=== PATIENT | male | born 1995 | race Hispanic/Latino ===

== ENCOUNTER 2018-02-04 17:11 | Emergency (ER) | payer MEDICAID ==
[2018-02-04 17:12] VITALS: BMI 27.3
--- NOTE | 2018-02-04 17:23 | ED PDOC ---
Arrival/HPI - General Chief Complaint: Abdominal Pain Time Seen by Provider: 02/04/18 17:22 Historian: Patient - History of Present Illness Narrative History of Present Illness (Text): 02/04/18 17:23 22 y/o male, no significant pmh, nkda, c/o RLQ pain started today. Pt. stated that he has RLQ pain started acutely this morning, non-radiating, associated with walking, stated that he was exercising yesterday but with no fall or trauma , no numbness or tingling, no urinary symptoms, no fever or chills, no flank pain, no other medical or psychological complaints. Past Medical History - Provider Review Nursing Documentation Reviewed: Yes - Past History Past History: No Previous - Infectious Disease Hx of Infectious Diseases: None - Tetanus Immunization Tetanus Immunization: Up to Date - Past Medical History Past Medical History: No Previous - Psychiatric Hx Depression: No Hx Emotional Abuse: No Hx Physical Abuse: No Hx Substance Use: No - Past Surgical History Past Surgical History: No Previous - Anesthesia Hx Anesthesia: No - Suicidal Assessment Feels Threatened In Home Enviroment: No Family/Social History - Physician Review Nursing Documentation Reviewed: Yes Family/Social History: Unknown Family HX Smoking Status: Unknown If Ever Smoked Hx Alcohol Use: No Hx Substance Use: No Hx Substance Use Treatment: No Allergies/Home Meds Allergies/Adverse Reactions: Allergies seasonal Allergy (Uncoded 02/04/18 17:20) CONGESTION Home Medications: Home Meds Medication Instructions Recorded Confirmed No Known Home Med [No Known Home 07/24/13 02/04/18 Med] Review of Systems - Review of Systems Constitutional: absent: Fatigue, Fevers Eyes: absent: Vision Changes ENT: absent: Hearing Changes Respiratory: absent: SOB, Cough Cardiovascular: absent: Chest Pain Gastrointestinal: Abdominal Pain. absent: Diarrhea, Nausea, Vomiting Skin: absent: Rash, Pruritis Neurological: absent: Headache, Dizziness Psychiatric: absent: Anxiety, Depression, Suicidal Ideation Physical Exam Vital Signs Reviewed: Yes Vital Signs Temp Pulse Resp BP Pulse Ox 02/04/18 18:35 98.3 F 88 18 136/83 98 02/04/18 17:16 98.3 F 88 18 136/83 98 Temperature: Afebrile Blood Pressure: Normal Pulse: Regular Respiratory Rate: Normal Appearance: Positive for: Well-Appearing, Non-Toxic, Comfortable Pain Distress: Moderate Mental Status: Positive for: Alert and Oriented X 3 - Systems Exam Head: Present: Atraumatic, Normocephalic Pupils: Present: PERRL Extroacular Muscles: Present: EOMI Conjunctiva: Present: Normal Mouth: Present: Moist Mucous Membranes Neck: Present: Normal Range of Motion Respiratory/Chest: Present: Clear to Auscultation, Good Air Exchange. No: Respiratory Distress, Accessory Muscle Use Cardiovascular: Present: Regular Rate and Rhythm, Normal S1, S2. No: Murmurs Abdomen: Present: Tenderness (+ttp on the RLQ region, no cva tenderness). No: Distention, Peritoneal Signs, Rebound, Guarding Back: Present: Normal Inspection. No: CVA Tenderness, Midline Tenderness Upper Extremity: Present: Normal Inspection. No: Cyanosis, Edema Lower Extremity: Present: Normal Inspection. No: Edema Neurological: Present: GCS=15, CN II-XII Intact, Speech Normal, Motor Func Grossly Intact, Gait Normal, Memory Normal Skin: Present: Warm, Dry, Normal Color. No: Rashes Psychiatric: Present: Alert, Oriented x 3, Normal Insight, Normal Concentration Medical Decision Making ED Course and Treatment: 02/04/18 17:33 Differential: Appencitis vs. Constipation vs. Muscular strain -Labs/ua -CT abdomen and pelvis -IVF/pepcid/zofran -Observe and reassess 02/04/18 18:15 -Pt. refused labs and CT scans, risks and benefits explained but the patient still refused, spent 15 minutes on the bed side to explained the risks and benefits, still design to sign out against medical advice, witnessed by wheelabrator operatorAMADA Can which both explained the risks and benefits. AMA AMA ER The patient refuses to stay in the Emergency Room (ER) to continue the care and wishes to leave the emergency department against my medical advice. Patient was told that staying in the ER is necessary and a full explanation of the reasons why was given, and understood by the patient with alert and oriented x4. The risk of leaving were explained in laymans term and including but not limited to appendicitis, colitis, bowel perforation, peritonitis, sepsis, organ(s) failures , pain, worsening of condition, permanent disability and from an undiagnosed or untreated condition. The patient accepts these risks, and is in my judgment is competent and capable of understanding the clinical situation and explanation of the risk of leaving. The patient is able to verbally repeated me back the above explained risks and benefits back to me, and verbally expressed understanding. Patient was given the opportunity to ask questions and change mind. The patient was instructed regarding the best care for the present symptoms, and to follow up as soon as possible with the primary care doctor including specialist or return to the emergency department at any time for continuing care. -You sign out against medical advice as we request and advised your to stay in the ER for blood work and Ct abdomen/pelvis to r/o appendicitis, take tylenol for pain as needed. Please follow up with your own pmd/GI/General surgeon immediately, return to the ER any time if you wishes to continue the medical care. - Medication Orders Current Medication Orders: Discontinued Medications Famotidine (Pepcid) 20 mg IVP STAT STA Stop: 02/04/18 17:31 Sodium Chloride (Sodium Chloride 0.9%) 1,000 mls @ 999 mls/hr IV .Q1H1M STA Stop: 02/04/18 18:30 Ondansetron HCl (Zofran Inj) 4 mg IVP STAT STA Stop: 02/04/18 17:31 - PA / PAINT DIPPER / Resident Statement / has reviewed & agrees with the documentation as recorded. Disposition/Present on Arrival - Present on Arrival Any Indicators Present on Arrival: No History of DVT/PE: No History of Uncontrolled Diabetes: No Urinary Catheter: No History of Decub. Ulcer: No History Surgical Site Infection Following: None - Disposition Have Diagnosis and Disposition been Completed?: Yes Diagnosis: RLQ abdominal pain, Non-compliance Disposition: AGAINST MEDICAL ADVICE Disposition Time: 18:05 Condition: STABLE Additional Instructions: -You sign out against medical advice as we request and advised your to stay in the ER for blood work and Ct abdomen/pelvis to r/o appendicitis, take tylenol for pain as needed. Please follow up with your own pmd/GI/General surgeon immediately, return to the ER any time if you wishes to continue the medical care. Referrals: Alvarado Steven MD [Staff Provider] - Follow up with primary Staci Lara MD [Medical Doctor] - Follow up with primary [facility] [Outside] - Follow up with primary
[2018-02-04] MEDS ORDERED: Sodium Chloride 0.9% 1,000 ML IV STA (17:30)
[2018-02-04 17:34] VITALS: BP 136/83; PULSE 88; RESP 18; TEMP 98.3; O2SAT 98
== END 2018-02-04 18:15 | disposition left against medical advice (07) ==
LOC: ED 17:11
DX: R10.31 Right lower quadrant pain (principal); Z91.19 Patient's noncompliance with other medical treatment and regimen